=== PATIENT | male | born 1970 | race Caucasian/White ===

== ENCOUNTER 2018-02-01 21:25 | Emergency (ER) | payer BC ==
[~2018-02-01] VITALS: Ht 177.8 cm; Wt 81.8 kg
[2018-02-01 21:33] VITALS: TEMP 99.1
[2018-02-01 21:56] LABS: BASO # 0.1 (0.0-0.2); BASO % 0.5 % (0.0-2.0); EOS # 0.1 (0.0-0.7); EOS % 1.2 % (0-4.0); GRAN # 6.7 (1.4-6.5); GRAN % 57.7 % (42.2-75.2); HEMATOCRIT 40.9 % (42.0-52.0); HEMOGLOBIN 14.1 g/dl (13.5-18.0); LYMPH # 3.9 (1.2-3.4); LYMPH % 33.4 % (20.0-51.0); MEAN CELL VOLUME 90 fl (80.0-100.0); MEAN CORPUSCULAR HEMOGLOBIN 31 pg (27.0-31.0); MEAN CORPUSCULAR HGB CONC 35 g/dl (33.0-37.0); MEAN PLATELET VOLUME 10.8 fl (7.4-10.4); MONO # 0.8 (0.1-0.6); MONO % 6.9 % (1.7-9.3); PLATELET COUNT 218 K/mm3 (130-400); RED BLOOD COUNT 4.53 M/mm3 (4.20-5.60)
[2018-02-01 22:05] LABS: ALANINE AMINOTRANSFERASE 25 U/L (21-72); ALBUMIN 4.2 gm/dL (3.5-5.0); ALKALINE PHOSPHATASE 74 U/L (50-136); ANION GAP 11 mmol/L (7-16); AST,SGOT 17 U/L (15-37); BILIRUBIN,TOTAL 0.5 mg/dL (0.0-1.0); BLOOD UREA NITROGEN 19 mg/dL (9-20); CALCIUM 9.1 mg/dL (8.4-10.2); CARBON DIOXIDE 23 mmol/L (22-30); CHLORIDE 103 mmol/L (98-107); CREATININE, serum 0.84 mg/dL (0.66-1.25); GLUCOSE 98 mg/dL (74-106); LIPASE 53 U/L (23-300); POTASSIUM 3.5 mmol/L (3.4-5.0); SODIUM 137 mmol/L (137-145); TOTAL PROTEIN 7.4 gm/dL (6.4-8.2)
[2018-02-01 22:17] LABS: TROPONIN-I < 0.012 ng/mL (0.000-0.034)
[2018-02-01] MEDS ORDERED: PROTONIX 40MG T40 MG PO (22:28)
[2018-02-01 23:46] LABS: ARTERIAL BLD GAS O2 SATURATION 95.6 % (92-100); ARTERIAL BLD GAS TCO2 CT 24.9; ARTERIAL BLOOD GAS HCO3 23.8 meq/L (22-26); ARTERIAL BLOOD GAS PCO2 36.2 mmHg (35-45); ARTERIAL BLOOD GAS PO2 75.7 mmHg (80-100); ARTERIAL BLOOD GAS pH 7.44 (7.35-7.45)
[2018-02-02 00:25] VITALS: BP 140/98; PULSE 57
== END 2018-02-02 00:25 | disposition home or self-care (01) ==
LOC: COL.ER 21:25
PROVIDERS: Emergency Medicine; Nurse Practitioner Family
DX: K21.9 Gastro-esophageal reflux disease without esophagitis (principal); R07.89 Other chest pain; F17.210 Nicotine dependence, cigarettes, uncomplicated

== ENCOUNTER → 2019-01-29 | Outpatient (CLI) | payer BC ==
[~2019-01-29] MED LIST: PROTONIX 40MG T40 MG PO
== END ==
LOC: ZCOL.LAB 16:37
DX: L02.31 Cutaneous abscess of buttock (principal)